=== PATIENT | male | born 1965 | race Caucasian/White ===

== ENCOUNTER 2021-03-07 19:18 | Emergency (ER) | payer BC ==
[2021-03-07 19:57] VITALS: BP 128/94; PULSE 80; TEMP 98.1
== END 2021-03-07 21:20 | disposition home or self-care (01) ==
LOC: FER 19:18
DX: K59.00 Constipation, unspecified (principal)
CPT/HCPCS: 81003; 87086; 99283-25

== ENCOUNTER 2021-06-22 14:22 | Emergency (ER) | payer BC ==
[2021-06-22 14:45] VITALS: TEMP 98.8; BMI 30.2
[2021-06-22] MEDS ORDERED: clonazePAM 0.5 MG TABLET ONE (15:33)
[2021-06-22] MEDS ORDERED: clonazePAM 0.5 MG TABLET PO ONE (15:33)
[2021-06-22 16:20] VITALS: BP 128/88; PULSE 64
== END 2021-06-22 17:25 | disposition home or self-care (01) ==
LOC: FER 14:22
DX: R07.9 Chest pain, unspecified (principal)
CPT/HCPCS: 36415; 84484; 93005; 99284-25

== ENCOUNTER 2022-05-16 21:26 | Emergency (ER) | payer BC ==
[2022-05-16 21:49] VITALS: BP 148/93; PULSE 70; RESP 18; TEMP 98.1
[2022-05-16 22:22] LABS: HEMATOCRIT 41.7 % (35.4-49); HEMOGLOBIN 14.5 G/dL (11.7-16.9); MCHC 34.7 g/dl (32.0-35.9); MEAN CELL VOLUME 86.6 fl (80-96); MEAN PLT VOLUME 9.4 fl (7.5-11.1); PLATELET COUNT 291.5 10^3/uL (134-434); RBC 4.82 10^6/uL (4.00-5.60); RDW 14.6 % (11.9-15.9); WHITE BLOOD COUNT 6.9 10^3/uL (4.0-10.8)
[2022-05-16 22:33] LABS: ALBUMIN 4.1 g/dl (3.4-5.0); BILIRUBIN,TOTAL 0.5 mg/dl (0.2-1); CREATININE 0.9 mg/dl (0.55-1.3); TOT PROT 6.7 g/dl (6.4-8.2)
[2022-05-16] MEDS ORDERED: methylPREDNISolone NA SUCC 125 MG/2 ML VIAL IM ONE (22:34)
[2022-05-16 22:35] LABS: PLATELET ESTIMATE ADEQUATE
[2022-05-16] MEDS ORDERED: methylPREDNISolone NA SUCC 125 MG/2 ML VIAL ONE (22:46)
== END 2022-05-16 23:33 | disposition home or self-care (01) ==
LOC: FER 21:26
PROC: 3E023NZ Introduction of Analgesics, Hypnotics, Sedatives into Muscle, Percutaneous Approach (ICD-10-PCS; principal; 2022-05-16)
DX: J45.901 Unspecified asthma with (acute) exacerbation (principal)
CPT/HCPCS: 0241U-QW; 36415; 71046-TC-FY; 80053; 85027; 96372; 99284-25

== ENCOUNTER 2023-01-21 16:40 | Emergency (ER) | payer BC ==
[2023-01-21 17:09] VITALS: BP 122/89; PULSE 69; RESP 18; TEMP 98.8; BMI 27.4
[2023-01-21] MEDS ORDERED: ALBUTEROL SO4 2.5/IPRATROPIUM 0.5 INH SOL 3 ML VIAL.NEB. NEB ONE (17:11)
[2023-01-21] MEDS: ALBUTEROL SO4 2.5/IPRATROPIUM 0.5 INH SOL 3 ML VIAL.NEB. NEB SCH ×3 (17:28→17:55)
[2023-01-21 17:39] LABS: HEMATOCRIT 40.1 % (35.4-49); HEMOGLOBIN 13.4 G/dL (11.7-16.9); MCH 29.5 pg (25.7-33.7); MCHC 33.4 g/dl (32.0-35.9); MEAN CELL VOLUME 88.5 fl (80-96); MEAN PLT VOLUME 9.9 fl (7.5-11.1); PLATELET COUNT 266.1 10^3/uL (134-434); RBC 4.53 10^6/uL (4.00-5.60); RDW 13.8 % (11.9-15.9); WHITE BLOOD COUNT 6.4 10^3/uL (4.0-10.8)
[2023-01-21 17:43] LABS: PLATELET ESTIMATE ADEQUATE
[2023-01-21 17:55] LABS: BILIRUBIN,TOTAL 0.3 mg/dl (0.2-1); BLOOD UREA NITROGEN 10.2 mg/dl (7-18); CALCIUM 8.7 mg/dl (8.5-10.1); CREATININE 0.8 mg/dl (0.6-1.3); POTASSIUM 4.3 mmol/L (3.5-5.1); SGPT/ALT 9.8 U/L (7-52)
== END 2023-01-21 18:49 | disposition home or self-care (01) ==
LOC: FER 16:40
PROC: 3E0F7GC Introduction of Other Therapeutic Substance into Respiratory Tract, Via Natural or Artificial Opening (ICD-10-PCS; principal; 2023-01-21)
DX: J45.20 Mild intermittent asthma, uncomplicated (principal); R06.02 Shortness of breath; R05.9 Cough, unspecified; R49.0 Dysphonia
CPT/HCPCS: 36415; 71046-TC-FY; 80053; 84484; 85027; 93005; 99285-25

== ENCOUNTER 2023-05-15 16:04 | Emergency (ER) | payer BC ==
[2023-05-15 16:21] VITALS: BP 116/86; PULSE 94; RESP 18; TEMP 99.8; BMI 24.0
[2023-05-15] MEDS ORDERED: ALBUTEROL SO4 2.5/IPRATROPIUM 0.5 INH SOL 3 ML VIAL.NEB. NEB ONE (16:51)
[2023-05-15] MEDS ORDERED: ALBUTEROL SO4 2.5/IPRATROPIUM 0.5 INH SOL 3 ML VIAL.NEB. NEB SCH (17:00)
[2023-05-15 17:32] LABS: HEMATOCRIT 45.3 % (35.4-49); HEMOGLOBIN 15.1 G/dL (11.7-16.9); MCH 29.6 pg (25.7-33.7); MCHC 33.4 g/dl (32.0-35.9); MEAN CELL VOLUME 88.4 fl (80-96); PLATELET COUNT 254.3 10^3/uL (134-434); RBC 5.12 10^6/uL (4.00-5.60); RDW 15.3 % (11.9-15.9); WHITE BLOOD COUNT 6.1 10^3/uL (4.0-10.8)
[2023-05-15] MEDS ORDERED: clonazePAM 0.5 MG TABLET PO ONE (17:38)
[2023-05-15] MEDS ORDERED: clonazePAM 0.5 MG TABLET ONE (17:41)
[2023-05-15 17:44] LABS: ALBUMIN 4.2 g/dl (3.4-5.0); BILIRUBIN,TOTAL 0.4 mg/dl (0.2-1); CALCIUM 9.2 mg/dl (8.5-10.1); CREATININE 0.8 mg/dl (0.6-1.3); POTASSIUM 4.6 mmol/L (3.5-5.1); TOT PROT 6.1 g/dl (6.4-8.2)
[2023-05-15 17:56] LABS: PLATELET ESTIMATE ADEQUATE
[2023-05-15 19:16] LABS: SYPHILIS W/ RPR CONF NON-REACTIVE (NONREACTIVE)
[2023-05-15 19:57] LABS: HIV INTERPRETATION NEGATIVE (NEGATIVE)
== END 2023-05-15 18:56 | disposition home or self-care (01) ==
LOC: FER 16:04
PROC: 3E0F7GC Introduction of Other Therapeutic Substance into Respiratory Tract, Via Natural or Artificial Opening (ICD-10-PCS; principal; 2023-05-15)
DX: R06.02 Shortness of breath (principal); R07.89 Other chest pain; F41.9 Anxiety disorder, unspecified; Z20.822 Contact with and (suspected) exposure to COVID-19
CPT/HCPCS: 0241U-QW; 36415; 71045-TC-FY; 80053; 84484; 85027; 86780; 87389; 87491; 87591; 93005; 93308; 94640; 99285-25

== ENCOUNTER 2023-07-21 13:26 | Observation (INO) | payer BC ==
[2023-07-21] MEDS ORDERED: predniSONE 20 MG TABLET (UD) PO ONE (13:41)
[2023-07-21] MEDS ORDERED: predniSONE 20 MG TABLET (UD) ONE (13:53)
[2023-07-21] MEDS: ALBUTEROL SO4 2.5/IPRATROPIUM 0.5 INH SOL 3 ML VIAL.NEB. NEB SCH ×4 (14:02→22:07)
[2023-07-21] MEDS ORDERED: ALBUTEROL SO4 0.083% IH SOL 2.5 MG/3 ML VIAL.NEB. NEB ONE ×2 (15:52→16:00)
[2023-07-21] MEDS ORDERED: methylPREDNISolone NA SUCC 125 MG/2 ML VIAL IVPUSH ONE (16:22)
[2023-07-21] MEDS ORDERED: methylPREDNISolone NA SUCC 125 MG/2 ML VIAL ONE (16:36)
[2023-07-21 16:38] LABS: HEMATOCRIT 42.8 % (35.4-49); HEMOGLOBIN 14.6 G/dL (11.7-16.9); MCH 29.7 pg (25.7-33.7); MCHC 34.1 g/dl (32.0-35.9); MEAN PLT VOLUME 9.8 fl (7.5-11.1); PLATELET COUNT 318.9 10^3/uL (134-434); RBC 4.92 10^6/uL (4.00-5.60); RDW 14.6 % (11.9-15.9); WHITE BLOOD COUNT 9.3 10^3/uL (4.0-10.8)
[2023-07-21 16:54] LABS: PLATELET ESTIMATE ADEQUATE
[2023-07-21 16:57] LABS: ALBUMIN 4.5 g/dl (3.4-5.0); BILIRUBIN,TOTAL 0.4 mg/dl (0.2-1); CALCIUM 9.3 mg/dl (8.5-10.1); CREATININE 0.8 mg/dl (0.6-1.3); POTASSIUM 4.1 mmol/L (3.5-5.1)
[2023-07-21 18:43] VITALS: BMI 24.9
[2023-07-21] MEDS ORDERED: ALBUTEROL SO4 0.083% IH SOL 2.5 MG/3 ML VIAL.NEB. NEB PRN (21:50)
[2023-07-21] MEDS ORDERED: clonazePAM 0.5 MG TABLET PO ONE (23:42)
[2023-07-22] MEDS: FAMOTIDINE 20 MG TABLET PO SCH ×3 (00:15→21:20)
[2023-07-22] MEDS: PANTOPRAZOLE 40 MG TABLET PO SCH ×3 (00:15→21:20)
[2023-07-22 07:57] LABS: CALCIUM 9.2 mg/dl (8.5-10.1); CREATININE 0.7 mg/dl (0.6-1.3); POTASSIUM 4.8 mmol/L (3.5-5.1)
[2023-07-22] MEDS ORDERED: TAMSULOSIN HCL 0.4 MG CAP PO SCH (08:30)
[2023-07-22 09:07] LABS: BASO % 0.1 % (0-2.0); HEMATOCRIT 39.8 % (35.4-49); HEMOGLOBIN 13.2 GM/dL (11.7-16.9); LYMPH % 18.6 % (8-40); MCH 28.9 pg (25.7-33.7); MCHC 33.2 g/dl (32.0-35.9); MEAN CELL VOLUME 87.1 fl (80-96); MEAN PLT VOLUME 9.5 fl (7.5-11.1); MONO % 6.7 % (3.8-10.2); NEUT % 74.6 % (42.8-82.8); PLATELET COUNT 294 10^3/uL (134-434); RBC 4.56 M/mm3 (4.00-5.60); WHITE BLOOD COUNT 6.3 K/mm3 (4.0-10.0)
[2023-07-22] MEDS: PARoxetine HCL 20 MG TABLET PO SCH (10:19)
[2023-07-22] MEDS: BUPRENORPHINE HCL 450 MCG FILM BC SCH ×2 (10:20→21:19)
[2023-07-22] MEDS: methylPREDNISolone NA SUCC 40 MG/1 ML VIAL IVPUSH SCH ×3 (10:20→21:19)
[2023-07-22] MEDS ORDERED: FLUTICASONE/SALMETEROL (WIXELA) 100 MCG/50 MCG DISKUS IH SCH (11:45)
[2023-07-22] MEDS: clonazePAM 0.5 MG TABLET PO PRN ×3 (12:13→21:30)
[2023-07-22] MEDS: TAMSULOSIN HCL 0.4 MG CAP PO SCH (21:20)
[2023-07-22] MEDS: BUDESONIDE/FORMETEROL FUMARATE 160/4.5 mcg INHALER IH SCH (21:21)
[2023-07-22 22:31] VITALS: RESP 18
[2023-07-23] MEDS: methylPREDNISolone NA SUCC 40 MG/1 ML VIAL IVPUSH SCH ×2 (02:57→10:19)
[2023-07-23] MEDS: BUPRENORPHINE HCL 450 MCG FILM BC SCH (10:16)
[2023-07-23] MEDS: PARoxetine HCL 20 MG TABLET PO SCH (10:19)
[2023-07-23] MEDS: TAMSULOSIN HCL 0.4 MG CAP PO SCH (10:20)
[2023-07-23] MEDS: clonazePAM 0.5 MG TABLET PO PRN (10:21)
[2023-07-23] MEDS: PANTOPRAZOLE 40 MG TABLET PO SCH (10:21)
[2023-07-23] MEDS: BUDESONIDE/FORMETEROL FUMARATE 160/4.5 mcg INHALER IH SCH (10:22)
[2023-07-23 10:37] VITALS: BP 117/67; PULSE 89; TEMP 98
== END 2023-07-23 15:11 | disposition home or self-care (01) ==
LOC: FER 13:26 → FM/S 16:40
PROVIDERS: ADMIT Internal Medicine
PROC: 3E0F7GC Introduction of Other Therapeutic Substance into Respiratory Tract, Via Natural or Artificial Opening (ICD-10-PCS; principal; 2023-07-21)
PROC: 3E033GC Introduction of Other Therapeutic Substance into Peripheral Vein, Percutaneous Approach (ICD-10-PCS; 2023-07-21)
DX: J45.909 Unspecified asthma, uncomplicated (principal); K21.9 Gastro-esophageal reflux disease without esophagitis; G89.29 Other chronic pain; F41.9 Anxiety disorder, unspecified
CPT/HCPCS: 0241U-QW; 36415; 71046-TC-FY; 71250-TC; 80048; 80053; 85025; 85027; 93005; 94640; 96374; 99285-25; G0378

== ENCOUNTER 2023-11-16 12:55 | Emergency (ER) | payer BC ==
[2023-11-16] MEDS ORDERED: TETRACAINE 0.5% OPHTH SOLN 2 ML BOTTLE ONE (13:08)
[2023-11-16] MEDS ORDERED: FLUORESCEIN NA 1 EA STRIP ONE (13:08)
[2023-11-16 13:19] VITALS: BP 142/88; PULSE 89; RESP 18; TEMP 98.1; BMI 23.1
== END 2023-11-16 13:39 | disposition home or self-care (01) ==
LOC: FER 12:55
DX: H57.89 Other specified disorders of eye and adnexa (principal)
CPT/HCPCS: 99283-25